=== PATIENT | male | born 2000 | race American Indian/Alaskan Native ===

== ENCOUNTER 2020-11-23 21:41 | Emergency (ER) | payer SELFPAY ==
[2020-11-23 22:55] LABS: Amphetamine Screen,Urine Negative; Benzodiazepines Screen,Urine Negative; Cocaine Screen,Urine Negative; Methadone Screen,Urine Negative; Opiate Screen,Urine Negative
[2020-11-23 22:58] LABS: Basophils # (Auto) 0.1 K/mm3 (0.0-0.1); Eosinophils % (Auto) 0.3 % (0.0-4.3); Hematocrit 42.4 % (35.5-45.6); Hemoglobin 14.1 gm/dl (11.8-15.2); Lymphocytes # (Auto) 1.6 K/mm3 (1.2-5.4); Lymphocytes % (Auto) 22.5 % (13.4-35.0); Mean Corpuscular HGB Conc 33 % (32-34); Mean Corpuscular Volume 89 fl (84-94); Monocytes # (Auto) 0.6 K/mm3 (0.0-0.8); Monocytes % (Auto) 8.8 % (0.0-7.3); Platelet Count 255 K/mm3 (140-440); Red Blood Count 4.74 M/mm3 (3.65-5.03); Red Cell Distribution Width 13.6 % (13.2-15.2)
[2020-11-23 23:07] LABS: Cannabinoid Screen,Urine Positive
--- NOTE | 2020-11-23 23:07 | Event Note ---
ED Screening Note Date of service: 11/23/20 Time: 23:05 ED Screening Note: 20-year-old -Martiniquais male presents to the emergency room complaining of extreme right upper chest pain after doing a matthews which I looked up is a jacquelyn/ MDMA. Patient reports that the pain is in his right shoulder as well. Patient states he has taken it in the past but never had this experience. He also reports he smokes weed. Right chest wall tenderness appears to be in discomfort. Inform attending Dr. Retana and charge nurse Monse he will be seen on the main ER. This initial assessment/diagnostic orders/clinical plan/treatment(s) is/are subject to change based on patients health status, clinical progression and re- assessment by fellow clinical providers in the ED. Further treatment and workup at subsequent clinical providers discretion. Patient/guardian urged not to elope from the ED as their condition may be serious if not clinically assessed and managed. Initial orders include:
[2020-11-23] MEDS ORDERED: PENICILLIN G BENZATHINE 1.2 MILLION UNIT/2 ML INJ IM ONE (23:19)
[2020-11-23 23:23] LABS: Alanine Aminotransferase 12 units/L (7-56); Albumin 4.6 g/dL (3.9-5); BUN/Creatinine Ratio 12; Blood Urea Nitrogen 12 mg/dL (9-20); Calcium 8.9 mg/dL (8.4-10.2); Hemolysis Index 9
[2020-11-23] MEDS ORDERED: SODIUM CHLORIDE 0.9% 1000 ML 1,000 ML IV ONE (23:23)
--- NOTE | 2020-11-23 23:23 | Emergency Department Report ---
ED Chest Pain HPI - General Chief Complaint: Chest Pain Stated Complaint: WEAKNESS/DRUG USE Source: patient Mode of arrival: Ambulatory Limitations: No Limitations - History of Present Illness Initial Comments: This is a 20-year-old -[place]ine[place] male presents to the emergency department with 3 complaints. First, and the main reason for the patient's visit, is that the patient has developed right-sided chest/chest wall pain after taking some type of drug this evening. He says it was "an upper" and the intention was to get high. He says that he has taken this particular drug in the past but "this has never happened before." He says that the pain is started to radiate towards the right shoulder. It is currently 10 out of 10 in intensity and worsens with palpation or any range of motion. He has not taken anything for his symptoms prior to presentation. Secondly, the patient complains of a 3-day history of right eye redness. He says that there is some mild burning sensation, there has been some discharge, and he has a sensitivity to light in this right eye. Third, the patient says that he has a recent exposure to syphilis. He says that his "baby mama" just told him that she has syphilis and they have recently had unprotected sexual intercourse. He denies any rash or lesions to the genitalia, penile discharge, dysuria. The patient has not received any empiric treatment for this exposure. He denies any fever, shortness of breath, cough, back pain, lower extremity swelling. No recent travel or sick contacts at home. - Related Data Previous Rx's Medication Instructions Recorded Last Taken Type Erythromycin [Erythromycin Ophth 1 applic OD Q4H #1 tube 11/24/20 Unknown Rx Oint] Ibuprofen [Motrin 600 MG tab] 600 mg PO Q8H PRN #20 tablet 11/24/20 Unknown Rx Allergies Allergy/AdvReac Type Severity Reaction Status Date / Time No Known Allergies Allergy Unverified 06/24/20 13:47 Heart Score - HEART Score History: Slightly suspicious EKG: Normal Age: < 45 Risk factors: 1-2 risk factors Troponin: < normal limit HEART Score: 1 - Critical Actions Critical Actions: 0-3 pts:0.9-1.7%risk of adverse cardiac event.Candidate for discharge ED Review of Systems ROS: Stated complaint: WEAKNESS/DRUG USE Other details as noted in HPI Comment: All other systems reviewed and negative Constitutional: denies: chills, fever Eyes: denies: eye pain, vision change ENT: denies: ear pain, throat pain Respiratory: denies: cough, shortness of breath Cardiovascular: chest pain. denies: palpitations Gastrointestinal: denies: abdominal pain, vomiting Genitourinary: denies: dysuria, discharge Musculoskeletal: arthralgia. denies: back pain, joint swelling Skin: denies: rash, lesions Neurological: denies: headache, weakness ED Past Medical Hx - Past Medical History Hx Asthma: Yes - Surgical History Past Surgical History?: No - Social History Smoking Status: Current Some Day Smoker Substance Use Type: None - Medications Home Medications: Home Medications Medication Instructions Recorded Confirmed Last Taken Type Erythromycin [Erythromycin Ophth 1 applic OD Q4H #1 tube 11/24/20 Unknown Rx Oint] Ibuprofen [Motrin 600 MG tab] 600 mg PO Q8H PRN #20 tablet 11/24/20 Unknown Rx ED Physical Exam - General Limitations: No Limitations - Other Other exam information: GENERAL: The patient is well-developed well-nourished. HENT: Normocephalic. Atraumatic. Patient has moist mucous membranes. EYES: Extraocular motions are intact. Pupils equal reactive to light bilaterally. The right conjunctiva is diffusely injected. There is some purulent appearing discharge seen towards the medial canthus of that right eye. NECK: Supple. Trachea is midline. CHEST/LUNGS: Clear to auscultation. There is no respiratory distress noted. There is reproducible tenderness to palpation along the right side of the chest wall. No crepitus or deformity. HEART/CARDIOVASCULAR: Regular. There is no tachycardia. There is no murmur. ABDOMEN: Abdomen is soft, nontender. Patient has normal bowel sounds. There is no abdominal distention. SKIN: Skin is warm and dry. NEURO: The patient is awake, alert, and oriented. The patient is cooperative. The patient has no focal neurologic deficits. Normal speech. MUSCULOSKELETAL: There is no tenderness or deformity. There is no limitation range of motion. ED Course Vital Signs 11/23/20 11/23/20 11/23/20 21:52 23:20 23:31 Temperature 97.4 F L Pulse Rate 84 79 76 Respiratory 18 19 20 Rate Blood Pressure 113/65 111/69 Blood Pressure [Left] O2 Sat by Pulse 99 100 Oximetry 11/23/20 11/23/20 11/23/20 23:35 23:45 23:55 Temperature Pulse Rate 64 79 Respiratory 14 13 Rate Blood Pressure 116/71 116/71 119/70 Blood Pressure [Left] O2 Sat by Pulse 98 100 100 Oximetry 11/24/20 11/24/20 11/24/20 00:01 00:15 00:31 Temperature Pulse Rate 75 77 67 Respiratory 11 L 16 16 Rate Blood Pressure 119/70 118/65 109/60 Blood Pressure [Left] O2 Sat by Pulse 99 100 99 Oximetry 11/24/20 11/24/20 11/24/20 00:45 01:01 01:15 Temperature Pulse Rate 60 65 66 Respiratory 17 13 13 Rate Blood Pressure 101/65 120/62 112/58 Blood Pressure [Left] O2 Sat by Pulse 100 100 100 Oximetry 11/24/20 11/24/20 01:31 01:50 Temperature 98.2 F Pulse Rate 58 L 64 Respiratory 11 L 15 Rate Blood Pressure 122/55 Blood Pressure 118/55 [Left] O2 Sat by Pulse 100 100 Oximetry HUMBERTO score - Humberto Score Age > 65: (0) No Aspirin use within the Past 7 Days: (0) No 3 or more CAD Risk Factors: (0) No 2 or more Angina events in past 24 hrs: (0) No Known CAD with more than 50% Stenosis: (0) No Elevated Cardiac Markers: (0) No ST Deviation Greater than 0.5mm: (0) No HUMBERTO Score: 0 ED Medical Decision Making - Lab Data Result diagrams: 11/23/20 22:35 11/23/20 22:35 Lab Results 11/23/20 11/23/20 11/23/20 Range/Units 22:35 22:35 22:35 WBC 7.0 (4.5-11.0) K/mm3 RBC 4.74 (3.65-5.03) M/mm3 Hgb 14.1 (11.8-15.2) gm/dl Hct 42.4 (35.5-45.6) % MCV 89 (84-94) fl MCH 30 (28-32) pg MCHC 33 (32-34) % RDW 13.6 (13.2-15.2) % Plt Count 255 (140-440) K/mm3 Lymph % (Auto) 22.5 (13.4-35.0) % [place] % (Auto) 8.8 H (0.0-7.3) % Eos % (Auto) 0.3 (0.0-4.3) % Baso % (Auto) 1.0 (0.0-1.8) % Lymph # (Auto) 1.6 (1.2-5.4) K/mm3 [place] # (Auto) 0.6 (0.0-0.8) K/mm3 Eos # (Auto) 0.0 (0.0-0.4) K/mm3 Baso # (Auto) 0.1 (0.0-0.1) K/mm3 Seg Neutrophils % 67.4 (40.0-70.0) % Seg Neutrophils # 4.7 (1.8-7.7) K/mm3 Sodium 138 (137-145) mmol/L Potassium 3.9 (3.6-5.0) mmol/L Chloride 101.5 (98-107) mmol/L Carbon Dioxide 28 (22-30) mmol/L Anion Gap 12 mmol/L BUN 12 (9-20) mg/dL Creatinine 1.0 (0.8-1.3) mg/dL Estimated GFR > 60 ml/min BUN/Creatinine Ratio 12 % Glucose 101 H (75-100) mg/dL Calcium 8.9 (8.4-10.2) mg/dL Total Bilirubin 0.30 (0.1-1.2) mg/dL AST 15 (5-40) units/L ALT 12 (7-56) units/L Alkaline Phosphatase 67 (35-129) units/L Total Creatine Kinase 219 H (55-170) units/L Troponin T (0.00-0.029) ng/mL Total Protein 7.5 (6.3-8.2) g/dL Albumin 4.6 (3.9-5) g/dL Albumin/Globulin Ratio 1.6 % Salicylates (2.8-20.0) mg/dL Urine Opiates Screen Urine Methadone Screen Acetaminophen (10.0-30.0) ug/mL Ur Barbiturates Screen Ur Phencyclidine Scrn Ur Amphetamines Screen U Benzodiazepines Scrn Urine Cocaine Screen U Marijuana (THC) Screen Drugs of Abuse Note Plasma/Serum Alcohol (0-0.07) % 11/23/20 11/23/20 11/23/20 Range/Units 23:50 23:50 23:50 WBC (4.5-11.0) K/mm3 RBC (3.65-5.03) M/mm3 Hgb (11.8-15.2) gm/dl Hct (35.5-45.6) % MCV (84-94) fl MCH (28-32) pg MCHC (32-34) % RDW (13.2-15.2) % Plt Count (140-440) K/mm3 Lymph % (Auto) (13.4-35.0) % [place] % (Auto) (0.0-7.3) % Eos % (Auto) (0.0-4.3) % Baso % (Auto) (0.0-1.8) % Lymph # (Auto) (1.2-5.4) K/mm3 [place] # (Auto) (0.0-0.8) K/mm3 Eos # (Auto) (0.0-0.4) K/mm3 Baso # (Auto) (0.0-0.1) K/mm3 Seg Neutrophils % (40.0-70.0) % Seg Neutrophils # (1.8-7.7) K/mm3 Sodium (137-145) mmol/L Potassium (3.6-5.0) mmol/L Chloride (98-107) mmol/L Carbon Dioxide (22-30) mmol/L Anion Gap mmol/L BUN (9-20) mg/dL Creatinine (0.8-1.3) mg/dL Estimated GFR ml/min BUN/Creatinine Ratio % Glucose (75-100) mg/dL Calcium (8.4-10.2) mg/dL Total Bilirubin (0.1-1.2) mg/dL AST (5-40) units/L ALT (7-56) units/L Alkaline Phosphatase (35-129) units/L Total Creatine Kinase (55-170) units/L Troponin T (0.00-0.029) ng/mL Total Protein (6.3-8.2) g/dL Albumin (3.9-5) g/dL Albumin/Globulin Ratio % Salicylates < 0.3 L (2.8-20.0) mg/dL Urine Opiates Screen Urine Methadone Screen Acetaminophen 5.0 L (10.0-30.0) ug/mL Ur Barbiturates Screen Ur Phencyclidine Scrn Ur Amphetamines Screen U Benzodiazepines Scrn Urine Cocaine Screen U Marijuana (THC) Screen Drugs of Abuse Note Plasma/Serum Alcohol < 0.01 (0-0.07) % 11/23/20 11/24/20 Range/Units Unknown 00:54 WBC (4.5-11.0) K/mm3 RBC (3.65-5.03) M/mm3 Hgb (11.8-15.2) gm/dl Hct (35.5-45.6) % MCV (84-94) fl MCH (28-32) pg MCHC (32-34) % RDW (13.2-15.2) % Plt Count (140-440) K/mm3 Lymph % (Auto) (13.4-35.0) % [place] % (Auto) (0.0-7.3) % Eos % (Auto) (0.0-4.3) % Baso % (Auto) (0.0-1.8) % Lymph # (Auto) (1.2-5.4) K/mm3 [place] # (Auto) (0.0-0.8) K/mm3 Eos # (Auto) (0.0-0.4) K/mm3 Baso # (Auto) (0.0-0.1) K/mm3 Seg Neutrophils % (40.0-70.0) % Seg Neutrophils # (1.8-7.7) K/mm3 Sodium (137-145) mmol/L Potassium (3.6-5.0) mmol/L Chloride (98-107) mmol/L Carbon Dioxide (22-30) mmol/L Anion Gap mmol/L BUN (9-20) mg/dL Creatinine (0.8-1.3) mg/dL Estimated GFR ml/min BUN/Creatinine Ratio % Glucose (75-100) mg/dL Calcium (8.4-10.2) mg/dL Total Bilirubin (0.1-1.2) mg/dL AST (5-40) units/L ALT (7-56) units/L Alkaline Phosphatase (35-129) units/L Total Creatine Kinase (55-170) units/L Troponin T < 0.010 (0.00-0.029) ng/mL Total Protein (6.3-8.2) g/dL Albumin (3.9-5) g/dL Albumin/Globulin Ratio % Salicylates (2.8-20.0) mg/dL Urine Opiates Screen Negative Urine Methadone Screen Negative Acetaminophen (10.0-30.0) ug/mL Ur Barbiturates Screen Negative Ur Phencyclidine Scrn Negative Ur Amphetamines Screen Negative U Benzodiazepines Scrn Negative Urine Cocaine Screen Negative U Marijuana (THC) Screen Positive Drugs of Abuse Note Disclamer Plasma/Serum Alcohol (0-0.07) % - EKG Data -: EKG Interpreted by Me EKG shows normal: sinus rhythm, axis, intervals, QRS complexes, ST-T waves (Early repolarization) Rate: normal - EKG Data When compared to previous EKG there are: previous EKG unavailable Interpretation: other (Sinus rhythm, normal axis, normal intervals, rate of 79 bpm, early repolarization. No ST elevation [place].) - Radiology Data Radiology results: image reviewed interpreted by me: Chest x-ray does not show any acute process. There are no pleural effusions, obvious pneumonia and there is no pneumothorax. No significant cardiomegaly. - Medical Decision Making This patient presents to the emergency department with complaint of right-sided chest pain after taking some type of illicit drug. He says that it is not jacquelyn but is some type of upper. He denies Adderall or methamphetamines. On examination the patient does have reproducible tenderness to palpation of the right chest wall, but there is no crepitus or deformity. Heart and lung sounds are normal to auscultation. Patient appears uncomfortable but otherwise does not appear in any respiratory or acute distress. EKG does not have any morphology consistent with ST elevation myocardial infarction. Chest x-ray does not show any pneumonia, pleural effusions, pneumothorax, or any other acute process. Patient's labs are mostly unremarkable including CBC, metabolic panel, negative troponin, no signs of rhabdomyolysis, and urine drug screen is only positive for marijuana. Patient is very low on the heart and HUMBERTO score. He is low on the Wells score criteria and negative on the pulmonary embolism rule out criteria. Patient was given IV fluid resuscitation and a dose of Toradol and upon reevaluation he is feeling greatly improved and his pain has resolved prior to discharge. The patient says that he was exposed to syphilis by his sexual partner recently. While the patient does not have any symptoms, he will be treated empirically with penicillin benzathine G. He understands that he should avoid any sexual intercourse or activity for at least 1 week after receiving this medication. Patient appears to have right eye conjunctivitis. He has an injected conjunctiva and there is some purulent appearing discharge. Pupils are equal and reactive to light, round. There is normal extraocular movement. He has been placed on erythromycin ointment and given outpatient referral for ophthalm ology. We had a long conversation about avoiding any further illicit drug use. Vital signs have been reassuring throughout his ED course including being afebrile. Critical Care Time: No Critical care attestation.: If time is entered above; I have spent that time in minutes in the direct care of this critically ill patient, excluding procedure time. ED Disposition Clinical Impression: Atypical chest pain, Chest wall pain, Illicit drug use, Conjunctivitis, Exposure to syphilis Disposition: TO HOME OR SELFCARE Is pt being admited?: No Condition: Stable Instructions: Nonspecific Chest Pain, Adult, Bacterial Conjunctivitis, Adult, How to Use Eye Drops and Eye Ointments, Chest Wall Pain Additional Instructions: Please follow-up with a primary care physician in the next few days. I have given you a referral for a local primary care physician and clinic. Your right-sided chest pain appears more likely to be musculoskeletal than cardiac. However, I have given you a referral for a local shuttle car operator, Dr. Huang. I have prescribed you an antibiotic ointment for your right eye conjunctivitis/pinkeye. I have given you a referral for a local reception clerk, Dr. Izaiah Retana. Please avoid any further illicit drug use. You were given a dose of penicillin G to treat your exposure to syphilis. Please avoid any sexual activity for 7 to 10 days. Return to the emergency department with any worsening of your symptoms, new or concerning symptoms not addressed during this current emergency department visit, or with any acute distress. Prescriptions: Erythromycin [Erythromycin Ophth Oint] 1 applic OD Q4H #1 tube Ibuprofen [Motrin 600 MG tab] 600 mg PO Q8H PRN #20 tablet PRN Reason: Pain Referrals: PRIMARY CARE, [Primary Care Provider] - 2-3 Days ADIN HUANG MD [Staff Physician] - 2-3 Days IZAIAH RETANA MD [Staff Physician] - 2-3 Days MAME GARZA MD [Staff Physician] - 2-3 Days [facility] [Provider Group] - 2-3 Days Time of Disposition: 01:36
[2020-11-23] MEDS ORDERED: KETOROLAC 30 MG/1 ML INJ IV ONE (23:29)
--- NOTE | 2020-11-24 00:16 | XRay Report ---
XR chest routine 2V INDICATION / CLINICAL INFORMATION: chest pain and tenderness COMPARISON: None available. FINDINGS: SUPPORT DEVICES: None. HEART / MEDIASTINUM: No significant abnormality. LUNGS / PLEURA: Lungs are clear. Costophrenic sulci are sharp. No pneumothorax. ADDITIONAL FINDINGS: No significant additional findings. IMPRESSION: 1. No acute findings. Signer Name: Aditya Leon MD Signed: 11/24/2020 12:12 AM Workstation Name: [id number]
[2020-11-24 01:51] VITALS: BP 118/55
== END 2020-11-24 01:51 | disposition home or self-care (01) ==
LOC: ED 21:41
DX: R07.89 Other chest pain (principal); H10.9 Unspecified conjunctivitis; F19.90 Other psychoactive substance use, unspecified, uncomplicated; Z20.2 Contact with and (suspected) exposure to infections with a predominantly sexual mode of transmission; J45.909 Unspecified asthma, uncomplicated; F17.200 Nicotine dependence, unspecified, uncomplicated; Z79.1 Long term (current) use of non-steroidal anti-inflammatories (NSAID); Z79.2 Long term (current) use of antibiotics
CPT/HCPCS: 36415; 71046; 80053; 80307; 82550; 84484; 85025; 93005; 96361; 96372; 96374; 99284; J0561; J1885; J7030; 80320; G0480